=== PATIENT | female | born 1950 | race American Indian/Alaskan Native ===

== ENCOUNTER 2021-01-22 01:25 | Emergency (ER) | payer MEDICARE ==
[2021-01-22] MEDS ORDERED: cloNIDine 0.2 MG TAB PO ONE (06:54)
--- NOTE | 2021-01-22 07:02 | Emergency Department Report ---
ED General Adult HPI - General Chief complaint: High BP Stated complaint: ELEVATED BLOOD PRESSURE Time Seen by Provider: 01/22/21 06:42 Source: patient, family Mode of arrival: Wheelchair Limitations: No Limitations - History of Present Illness Initial comments: CC: "Her blood pressure was up." HPI: THis is a 70 yo female with hx of severe HTN, dementia, DM, aneurysm, cataract who presents with elevated blood pressure. Patient has been a [facility] of the [facility] since December. Previously she was being cared for at [facility]. Daughter is at the bedside providing history. Recently her physician at [facility] changed her blood pressure medicine. Patient was concerned about swelling being called by Procardia nifedipine. Patient had mild ankle swelling due to the medication. Consequently her medications were changed last week. Hydralazine was discontinued. Losartan replaced the Procardia. The Procardia has controlled her blood pressure for several years. Patient also has a clonidine patch which is changed every Sunday. Patient was concerned about her kidney function due to the swelling. Daughter explained that physician did have appropriate investigation of her kidney function. [facility] Patient denies any symptoms. -: Gradual, days(s) (Several days) Location: left, right, lower extremity (Bilateral ankle swelling) Severity scale (0 -10): 0 Consistency: constant Improves with: none Worsens with: none Associated Symptoms: denies other symptoms Treatments Prior to Arrival: other (EMS transport) - Related Data Previous Rx's Medication Instructions Recorded Last Taken Type NIFEdipine XL [Procardia Xl] 90 mg PO QDAY 90 Days #90 tablet 01/22/21 Unknown Rx Allergies Allergy/AdvReac Type Severity Reaction Status Date / Time codeine Allergy Hives Verified 01/22/21 03:29 Penicillins Allergy Swelling Verified 01/22/21 03:30 ED Review of Systems ROS: Stated complaint: ELEVATED BLOOD PRESSURE Other details as noted in HPI Comment: All other systems reviewed and negative Constitutional: denies: chills, fever, malaise Respiratory: denies: cough, shortness of breath Cardiovascular: denies: chest pain Gastrointestinal: denies: abdominal pain, nausea, vomiting Neurological: denies: headache ED Past Medical Hx - Past Medical History Previous Medical History?: Yes Hx Hypertension: Yes Hx Diabetes: Yes Hx Dementia: Yes Additional medical history: Vascular Disease. Aneyursm, CATARACT - Surgical History Past Surgical History?: Yes Additional Surgical History: HYSTERECTOMY. BRAIN SURGERY FOR ANYURISM - Social History Smoking Status: Never Smoker Substance Use Type: None - Medications Home Medications: Home Medications Medication Instructions Recorded Confirmed Last Taken Type NIFEdipine XL [Procardia Xl] 90 mg PO QDAY 90 Days #90 tablet 01/22/21 Unknown Rx ED Physical Exam - General Limitations: No Limitations General appearance: alert, in no apparent distress, anxious (Slightly anxious) - Head Head exam: Present: atraumatic, normocephalic - Eye Eye exam: Present: normal appearance - ENT ENT exam: Present: mucous membranes moist - Neck Neck exam: Present: normal inspection, full ROM - Respiratory Respiratory exam: Present: normal lung sounds bilaterally. Absent: respiratory distress, wheezes, rales, rhonchi - Cardiovascular Cardiovascular Exam: Present: regular rate, normal rhythm, normal heart sounds. Absent: systolic murmur, diastolic murmur, rubs, gallop - GI/Abdominal GI/Abdominal exam: Present: soft, normal bowel sounds. Absent: distended, tenderness, guarding, rebound - Extremities Exam Extremities exam: Present: normal inspection - Back Exam Back exam: Present: normal inspection - Neurological Exam Neurological exam: Present: alert, oriented X3 - Psychiatric Psychiatric exam: Present: anxious, flat affect - Skin Skin exam: Present: warm, dry, intact, normal color. Absent: rash ED Course Vital Signs 01/22/21 01/22/21 03:18 06:49 Temperature 98.1 F Pulse Rate 65 63 Respiratory 12 18 Rate Blood Pressure 196/105 Blood Pressure 191/101 [Right] O2 Sat by Pulse 99 99 Oximetry ED Medical Decision Making - Medical Decision Making Asymptomatic hypertensive urgency: Patient given clonidine in emergency department. In triage blood pressure 196/105. I have prescribed Procardia 90- day supply. I recommended close PCP follow-up. Critical care attestation.: If time is entered above; I have spent that time in minutes in the direct care of this critically ill patient, excluding procedure time. ED Disposition Clinical Impression: Hypertensive urgency Disposition: DC-01 TO HOME OR SELFCARE Is pt being admited?: No Does the pt Need Aspirin: No Condition: Stable Additional Instructions: Please continue all medications. Please continue losartan. Please add Procardia back to patient's regimen. She understands that ankle swelling is a common adverse effect. Prescriptions: NIFEdipine XL [Procardia Xl] 90 mg PO QDAY 90 Days #90 tablet Referrals: PRIMARY CARE, [Referring] - 3-5 Days
[2021-01-22 07:50] VITALS: BP 189/89
== END 2021-01-22 07:04 | disposition home or self-care (01) ==
LOC: ED 01:25
DX: I16.0 Hypertensive urgency (principal); E11.8 Type 2 diabetes mellitus with unspecified complications; F03.90 Unspecified dementia, unspecified severity, without behavioral disturbance, psychotic disturbance, mood disturbance, and anxiety; H26.9 Unspecified cataract; I72.9 Aneurysm of unspecified site; I99.9 Unspecified disorder of circulatory system; Z98.890 Other specified postprocedural states; Z88.0 Allergy status to penicillin; Z88.5 Allergy status to narcotic agent
CPT/HCPCS: 99283